=== PATIENT | female | born 1955 | race Caucasian/White ===

== ENCOUNTER 2021-02-21 21:56 | Emergency (ER) | payer OTHER ==
[~2021-02-21] VITALS: Ht 165.1 cm; Wt 74.8 kg
[2021-02-21] MEDS ORDERED: ARMOUR THYROID15 M1 PO (22:09)
[2021-02-21 22:31] LABS: ABSOLUTE BASOPHILS 0.1 thou/uL (0.0-0.2); ABSOLUTE EOSINOPHILS 0.3 thou/uL (0.0-0.7); ABSOLUTE LYMPHOCYTES 3.3 thou/uL (0.8-5.3); ABSOLUTE MONOCYTES 0.4 thou/uL (0.0-1.2); ABSOLUTE NEUTROPHILS 1.8 thou/uL (1.6-8.1); BASOPHILS 1.4 %; EOSINOPHILS 5.7 %; HEMATOCRIT 37.2 % (37.0-47.0); HEMOGLOBIN 13.6 gm/dL (12.0-15.0); LYMPHOCYTES 55.7 %; MCH 33.3 pg (26.0-34.0); MCHC 36.5 g/dL (28.0-37.0); MCV 91.2 fL (80.0-100.0); MONOCYTES 7.2 %; NUCLEATED RBCS 0 /100WBC; PLATELET COUNT* 252 thou/uL (150-400); RBC 4.07 mil/uL (4.20-5.00); RDW-CV 12.4 % (10.5-14.5); WBC 5.9 thou/uL (4.0-11.0)
[2021-02-21 22:41] LABS: CALCIUM 8.2 mg/dL (8.5-10.1); CREATININE 0.7 mg/dL (0.6-1.3); POTASSIUM 3.6 mmol/L (3.5-5.1)
[2021-02-21 22:52] LABS: ALBUMIN 3.5 g/dL (3.4-5.0); MAGNESIUM 1.9 mg/dL (1.8-2.4); TOTAL BILIRUBIN 0.4 mg/dL (<0.1-1.0)
[2021-02-21 23:00] LABS: INR 0.9
[2021-02-21 23:40] LABS: TOTAL PROTEIN 6.6 g/dL (6.4-8.2)
[2021-02-22 00:23] VITALS: BP 136/72
--- NOTE | 2021-02-22 15:27 | EKG ---
[place] [address] ELECTROCARDIOGRAM REPORT Name: CHAVEZ HIGGINS Room: [facility]#: [id number] Admission: 02/21/21 Attend Phys: Discharge: 02/22/21 Date of : 57 Date of Service: 02/21/212205 Report #: [id number] THIS REPORT FOR: //name// [facility] ED Test Date: 2021-02-21 Test Time: 22:06:09 Pat Name: CHAVEZ HIGGINS Department: Room: Gender: F Data Base Administrator: [facility] : 1955 Requested By: Leonor Taveras Order Number: [id number] MD: Adolph Martin Measurements Intervals [place] Rate: 80 P: 4 WV: 183 QRS: -22 QRSD: 82 T: 57 QT: 379 QTc: 438 Interpretive Statements Sinus rhythm Borderline left axis deviation No previous ECG available for comparison Electronically Signed On 02-22-2021 15:27:14 CDT by Adolph Martin [email or web address] <ELECTRONICALLY SIGNED> By: Adolph Martin MD, [facility] 02/22/21 1527 05 05 Adolph Martin MD, [facility] /EPI
== END 2021-02-22 00:26 | disposition home or self-care (01) ==
LOC: M.ERS 21:56
PROVIDERS: Emergency Medicine
DX: R00.2 Palpitations (principal); E03.9 Hypothyroidism, unspecified; Z98.890 Other specified postprocedural states; Z91.011 Allergy to milk products; Z88.8 Allergy status to other drugs, medicaments and biological substances